=== PATIENT | female | born 1970 | race African-American/Black ===

== ENCOUNTER 2019-10-28 10:40 | Emergency (ER) | payer OTHER ==
--- NOTE | 2019-10-28 10:43 | PDOC ---
History of Present Illness - General Chief Complaint: Blood Pressure Problem Stated Complaint: LIGHT HEADED Time Seen by Provider: 10/28/19 10:42 - History of Present Illness Initial Comments: HPI: 49yo F with PMH of migraines and GI ulcer with complaint of lightheadedness and elevated blood pressure reading. Patient is known to me from an ED visit yesterday in which she presented for migraine. Patient was discharged with impro vement in her headache. She reports she took a sumatriptain last night around 11pm with complete resolution of her headache. Patient reported to her work as a [employer]. 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 Noticed her smartwatch alarmed her with a HR of 115. Patient therefater asked a co-worker to check her vital signs, and patient was alarmed about a BP reading in the 140s systolic. Patient continued working but thereafter felt "lightheaded" and "wasn't feeling right." Her blood pressure was checked once again and noted to be in the 140s systolic such that she was instructed to leave work and receive medical clearance to return. Patient states she feels like herself now. Denies chest pain, shortness of breath, headache, syncope, or pre-syncope. No hemoptysis, no recent surgical history, no recent immobilization, no hormone use, no history of DVT or PE. Denies fever or chills. PCP: Dr. Solano ROS: Constitutional: no fever, no chills HEENT: no throat pain, no dysphagia Cardiovascular: no chest pain, no palpitations Respiratory: no cough, no shortness of breath Gastrointestinal: no abdominal pain, no nausea Genitourinary: no dysuria, no hematuria Musculoskeletal: no myalgia, no arthralgia Skin: no rash, no itching Neurologic: +headache, +lightheaded Psych: no agitation, no anxiety PE: General: Awake, alert, and fully oriented, in no acute distress Head: No signs of trauma Eyes: EOMI, sclera anicteric ENT: Moist mucus membranes Neck: Normal ROM, supple Lungs: Lungs clear, Normal breath sounds Cardio: Regular rhythm, S1 and S2 present Abdomen: Soft, nontender Extremities: Normal range of motion, Distal pulses present, No calf tenderness Skin: Warm, Dry, normal turgor Neurologic: Cranial nerves II through XII grossly intact. Normal speech ED Course/MDM: DDX including but not limited to hypertension, hypoglycemia, anemia, metabolic derangement CBC, CMP performed yesterday WNL EKG, fingerstick 10/28/19 10:43 EKG: rate 73. Qtc 429, NSR 10/28/19 11:23 Fingerstick 84 10/28/19 11:35 Low suspicion for acute pathology. Patient's blood pressure readings do not meet criteria for hypertensive urgency/emergency. EKG and BGM normal. Low suspicion for acute cardiac pathology. Currently without symptoms. To follow up with her primary care provider Return precautions Stable for discharge 10/28/19 11:36 Past History - Medical History Allergies/Adverse Reactions: Allergies Allergy/AdvReac Type Severity Reaction Status Date / Time No Known Allergies Allergy Unverified 10/28/19 10:46 Home Medications: Ambulatory Orders Ondansetron HCl [Zofran] 8 mg PO BID PRN 10/28/19 Sumatriptan Succinate [Imitrex -] 50 mg PO DAILY PRN 10/28/19 Discharge - Discharge Information Problems reviewed: Yes Clinical Impression/Diagnosis: Lightheaded High blood pressure Qualifiers: Hypertension type: unspecified Qualified Code(s): I10 - Essential (primary) hypertension Condition: Stable Disposition: HOME - Follow up/Referral - Patient Discharge Instructions Patient Printed Discharge Instructions: DI for High Blood Pressure Additional Instructions: You came into the emergency department after feeling lightheaded. EKG and blood glucose level was normal. Eat and hydrate throughout the day to prevent dehydration and low blood sugar levels. Continue taking home medications as prescribed by your physician. Follow up with your primary care physician within 72 hours. Call and make an appointment to further evaluate your symptoms. Your workup is not complete until you do so. Immediate medical attention is required if you have: any chest pain, palpitations, shortness of breath, severe headaches, changes in vision, episodes of fainting, focal numbness or weakness, any severe abdominal pain, any black tarry stool, or any new or concerning symptoms. If you think you are having an emergency, call for emergency medical services or present to the emergency department right away. - Post Discharge Activity Work/Back to School Note: Back to Work
--- NOTE | 2019-10-28 10:46 | PDOC ---
Attending Attestation - Resident Resident Name: Dariana Valdes - ED Attending Attestation I have performed the following: I have examined & evaluated the patient, The case was reviewed & discussed with the resident, I agree w/resident's findings & plan, Exceptions are as noted - HPI HPI: 49 yo F presents after episode of LH at work today. She states her vitals were checked- elevated BP and HR. She states she is asymptomatic at this time. Denies cp, SOB, leg swelling, numbness, weakness, HATHAWAY. - Physicial Exam PE: GENERAL: Awake, alert, and fully oriented, in no acute distress HEAD: No signs of trauma EYES: PERRLA, EOMI, sclera anicteric, conjunctiva clear ENT: Auricles normal inspection, hearing grossly normal, nares patent, oropharynx clear without exudates. Moist mucosa NECK: Normal ROM, supple, no lymphadenopathy, JVD, or masses LUNGS: Breath sounds equal, clear to auscultation bilaterally. No wheezes, and no crackles HEART: Regular rate and rhythm, normal S1 and S2, no murmurs, rubs or gallops ABDOMEN: Soft, nontender, normoactive bowel sounds. No guarding, no rebound. No masses EXTREMITIES: Normal range of motion, no edema. No clubbing or cyanosis. No cords, erythema, or tenderness NEUROLOGICAL: Cranial nerves II through XII grossly intact. Normal speech, normal gait. Motor and sensation intact SKIN: Warm, dry, normal turgor, no rashes or lesions noted. - Medical Decision Making Pt with no prior history of HTN, presenting with elevated BP reading at work after an episode of lightheadedness. She was tachycardic at the time. She states she has had problems with anxiety when wearing masks, having difficulty breathing, feeling claustrophobic. She is unable to wear N95s for this reason. She has no cp, SOB, leg swelling, H[place]AY, and no neuro complaints. Asymptomatic HTN, no indication for emergent intervention at this time. EKG, BGM, DC if normal. Heart Score/ECG Review - ECG Impressions Comment:: EKG read 11:20- NSR, 73 bpm, no acute ST/T changes Discharge - Discharge Information Problems reviewed: Yes Clinical Impression/Diagnosis: Lightheaded High blood pressure Qualifiers: Hypertension type: unspecified Qualified Code(s): I10 - Essential (primary) hypertension Condition: Stable Disposition: HOME - Follow up/Referral - Patient Discharge Instructions Patient Printed Discharge Instructions: DI for High Blood Pressure Additional Instructions: You came into the emergency department after feeling lightheaded. EKG and blood glucose level was normal. Eat and hydrate throughout the day to prevent dehydration and low blood sugar levels. Continue taking home medications as prescribed by your physician. Follow up with your primary care physician within 72 hours. Call and make an appointment to further evaluate your symptoms. Your workup is not complete until you do so. Immediate medical attention is required if you have: any chest pain, palpitations, shortness of breath, severe headaches, changes in vision, episodes of fainting, focal numbness or weakness, any severe abdominal pain, any black tarry stool, or any new or concerning symptoms. If you think you are having an emergency, call for emergency medical services or present to the emergency department right away. - Post Discharge Activity Work/Back to School Note: Back to Work
[2019-10-28 11:03] VITALS: TEMP 98.3; BMI 29.8
[2019-10-28 11:44] VITALS: BP 132/98; PULSE 78
--- NOTE | 2019-10-28 16:29 | EKG ---
Test Reason : Blood Pressure : / mmHG Vent. Rate : 073 BPM Atrial Rate : 073 BPM P-R Int : 162 ms QRS Dur : 076 ms QT Int : 390 ms P-R-T Axes : 066 048 044 degrees QTc Int : 429 ms NORMAL SINUS RHYTHM NORMAL ECG NO PREVIOUS ECGS AVAILABLE Confirmed by MD JESSE, ELVIN ([id number]) on 10/28/2019 4:29:05 PM Referred By: AMADEO YOUNG Confirmed By:ELVIN MOLINA MD
== END 2019-10-28 11:51 | disposition home or self-care (01) ==
LOC: FER 10:40
DX: R42 Dizziness and giddiness (principal); I10 Essential (primary) hypertension
CPT/HCPCS: 82962; 93005; 99284-25

== ENCOUNTER 2020-05-04 08:15 | Emergency (ER) | payer OTHER ==
[2020-05-04] MEDS ORDERED: MECLIZINE HCL 25 MG TABLET (FP) PO ONE (08:36)
[2020-05-04] MEDS ORDERED: METOCLOPRAMIDE HCL INJECTION 10 MG/2 ML VIAL IVPUSH ONE (08:36)
[2020-05-04] MEDS ORDERED: SODIUM CHLORIDE 0.9% 1000 ML INFUS.BAG IV ONE ×2 (08:36→10:32)
[2020-05-04 08:40] VITALS: BP 129/89; PULSE 88; TEMP 95.8; BMI 29.9
[2020-05-04 09:19] LABS: BASO % 0.3 % (0-2.0); EOS % 0.8 % (0-4.5); HEMATOCRIT 36.3 % (32.4-45.2); HEMOGLOBIN 11.4 GM/dl (10.7-15.3); LYMPH % 13.4 % (8-40); MCH 26.1 pg (25.7-33.7); MCHC 31.5 g/dl (32.0-36.0); MEAN CELL VOLUME 82.8 fl (80-96); MEAN PLT VOLUME 8.2 fl (7.5-11.1); MONO % 7.9 % (3.8-10.2); NEUT % 77.6 % (42.8-82.8); PLATELET COUNT 362 K/MM3 (134-434); RBC 4.39 M/mm3 (3.60-5.2); RDW 14.3 % (11.6-15.6)
[2020-05-04] MEDS ORDERED: MECLIZINE HCL 25 MG TABLET (FP) ONE (09:19)
[2020-05-04] MEDS ORDERED: METOCLOPRAMIDE HCL INJECTION 10 MG/2 ML VIAL ONE (09:19)
[2020-05-04 09:28] LABS: ALBUMIN 3.8 g/dl (3.4-5.0); BILIRUBIN,TOTAL 0.5 mg/dl (0.2-1); CALCIUM 8.2 mg/dl (8.5-10); CREATININE 0.6 mg/dl (0.55-1.3); POTASSIUM 4.2 mmol/L (3.5-5.1); TOT PROT 7.1 g/dl (6.4-8.2)
[2020-05-04] MEDS ORDERED: LORazepam 1 MG TABLET PO ONE (10:32)
[2020-05-04] MEDS ORDERED: LORazepam 0.5 MG TABLET ONE (10:36)
== END 2020-05-04 13:35 | disposition home or self-care (01) ==
LOC: FER 08:15
PROC: 3E033GC Introduction of Other Therapeutic Substance into Peripheral Vein, Percutaneous Approach (ICD-10-PCS; principal; 2020-05-04)
DX: R42 Dizziness and giddiness (principal)
CPT/HCPCS: 36415; 80053; 82550; 84484; 85025; 93005; 99284-25